=== PATIENT | male | born 1985 | race Caucasian/White ===

== ENCOUNTER 2018-05-27 07:31 | Emergency (ER) | payer MEDICAID ==
[~2018-05-27] VITALS: Ht 180.3 cm; Wt 126.0 kg
[2018-05-27 07:37] VITALS: BP 138/94
== END 2018-05-27 08:51 | disposition home or self-care (01) ==
LOC: ER 08:09
DX: H60.92 Unspecified otitis externa, left ear (principal); F17.200 Nicotine dependence, unspecified, uncomplicated
CPT/HCPCS: 99282

== ENCOUNTER 2018-12-28 18:03 | Emergency (ER) | payer MEDICAID ==
[~2018-12-28] VITALS: Ht 180.3 cm; Wt 125.0 kg
[2018-12-28] MEDS ORDERED: HALOPERIDOL LACTATE 5MG/ML VIAL IM STA (18:40)
[2018-12-28] MEDS ORDERED: LORAZEPAM 2MG/ML CPJ IM STA (18:40)
[2018-12-28 19:06] LABS: BASOPHILS % 1.1 % (0.0-2.0); EOSINOPHILS % 0.6 % (0.0-5.0); HEMATOCRIT. 42.5 % (42.0-52.0); HEMOGLOBIN. 14.7 g/dL (14.0-18.0); LYMPHOCYTES % 18.8 % (20.0-50.0); MEAN CORPUSCULAR HEMOGLOBIN 31.8 pg (28.0-32.0); MEAN CORPUSCULAR VOLUME 91.7 fL (80.0-94.0); MEAN PLATELET VOLUME 7.4 fl (7.4-10.4); MONOCYTES % 6.1 % (2.0-8.0); NEUTROPHILS % 73.4 % (40.0-76.0); PLATELET 289 x1000/uL (130-400); RED BLOOD CELL COUNT 4.63 mill/uL (4.7-6.1); RED CELL DISTRIBUTION WIDTH 12.8 % (11.6-14.6)
[2018-12-28 19:08] LABS: CHLORIDE 108 mEq/L (98-107)
[2018-12-28 19:12] LABS: ETHANOL BLOOD < 10 mg/dL
[2018-12-28] MEDS ORDERED: CALCIUM GLUCONATE 1,000 MG in DEXTROSE 5% WATER 50 ML IV ONE (19:30)
[2018-12-29 10:18] LABS: COLOR URINE YELLOW (YELLOW); KETONES URINE NEGATIVE (NEGATIVE); LEUKOCYTE ESTERASE URINE NEGATIVE (NEGATIVE); NITRITE URINE NEGATIVE (NEGATIVE); OCCULT BLOOD URINE NEGATIVE (NEGATIVE); PH URINE 6.5 (4.5-8.0); PROTEIN URINE NEGATIVE (NEGATIVE); SPECIFIC GRAVITY URINE 1.028 (1.005-1.030)
[2018-12-29 10:24] LABS: CLARITY URINE CLEAR (CLEAR)
[2018-12-29 10:48] LABS: *BENZODIAZEPINES SCREEN URINE NEGATIVE (NEGATIVE)
[2018-12-29 10:49] LABS: *AMPHETAMINES SCREEN URINE PRESUMTIVE POSITIVE (NEGATIVE); *COCAINE SCREEN URINE NEGATIVE (NEGATIVE); CANNABINOID URINE SCREEN PRESUMTIVE POSITIVE (NEGATIVE); OPIATES URINE SCREEN NEGATIVE (NEGATIVE)
[2018-12-29 10:50] LABS: *BARBITURATES SCREEN URINE NEGATIVE (NEGATIVE)
[2018-12-29 10:52] LABS: PHENCYCLIDINE URINE SCREEN NEGATIVE (NEGATIVE)
[2018-12-29 10:54] LABS: METHADONE URINE SCREEN NEGATIVE (NEGATIVE)
[2018-12-29 12:26] VITALS: BP 125/69
== END 2018-12-29 13:21 | disposition home or self-care (01) ==
LOC: ER 18:03
DX: F14.188 Cocaine abuse with other cocaine-induced disorder (principal); F15.188 Other stimulant abuse with other stimulant-induced disorder; F31.9 Bipolar disorder, unspecified; F20.9 Schizophrenia, unspecified
CPT/HCPCS: 36415; 71045; 80053; 80305; 80307; 80320; 80329; 81003; 82310; 82330; 85025; 93005; 96365; 96372; 99284; J0610; J1630; J7060; G0480

== ENCOUNTER 2019-01-02 10:13 | Emergency (ER) | payer MEDICAID ==
[~2019-01-02] VITALS: Ht 180.3 cm; Wt 100.0 kg
[2019-01-02] MEDS ORDERED: LORAZEPAM 2MG/ML CPJ IM STA (10:45)
[2019-01-02 11:22] LABS: CHLORIDE 110 mEq/L (98-107)
[2019-01-02 11:24] LABS: EOSINOPHILS % 2.1 % (0.0-5.0); HEMATOCRIT. 41.3 % (42.0-52.0); HEMOGLOBIN. 14.4 g/dL (14.0-18.0); LYMPHOCYTES % 12.7 % (20.0-50.0); MEAN CORPUSCULAR HEMOGLOBIN 31.9 pg (28.0-32.0); MEAN CORPUSCULAR VOLUME 91.6 fL (80.0-94.0); MEAN PLATELET VOLUME 7.6 fl (7.4-10.4); MONOCYTES % 7.7 % (2.0-8.0); NEUTROPHILS % 76.5 % (40.0-76.0); PLATELET 317 x1000/uL (130-400); RED CELL DISTRIBUTION WIDTH 13.2 % (11.6-14.6)
[2019-01-02 11:27] LABS: ETHANOL BLOOD < 10 mg/dL
[2019-01-02] MEDS ORDERED: CEPHALEXIN 250MG CAPSULE PO ONE (12:00)
[2019-01-02] MEDS: CEPHALEXIN 250MG CAPSULE PO SCH ×4 (12:00→21:00)
[2019-01-02] MEDS ORDERED: POTASSIUM CHLORIDE 20MEQ TABLET SR PO ONE (12:00)
[2019-01-03 08:46] LABS: CLARITY URINE CLOUDY (CLEAR); COLOR URINE YELLOW (YELLOW); KETONES URINE NEGATIVE (NEGATIVE); LEUKOCYTE ESTERASE URINE NEGATIVE (NEGATIVE); NITRITE URINE NEGATIVE (NEGATIVE); OCCULT BLOOD URINE NEGATIVE (NEGATIVE); PROTEIN URINE NEGATIVE (NEGATIVE); SPECIFIC GRAVITY URINE 1.023 (1.005-1.030)
[2019-01-03 09:08] LABS: *AMPHETAMINES SCREEN URINE NEGATIVE (NEGATIVE); *BARBITURATES SCREEN URINE NEGATIVE (NEGATIVE); *BENZODIAZEPINES SCREEN URINE NEGATIVE (NEGATIVE)
[2019-01-03 09:09] LABS: *COCAINE SCREEN URINE NEGATIVE (NEGATIVE); OPIATES URINE SCREEN NEGATIVE (NEGATIVE); PHENCYCLIDINE URINE SCREEN NEGATIVE (NEGATIVE)
[2019-01-03 09:10] LABS: CANNABINOID URINE SCREEN PRESUMTIVE POSITIVE (NEGATIVE); METHADONE URINE SCREEN NEGATIVE (NEGATIVE)
[2019-01-03] MEDS: CEPHALEXIN 250MG CAPSULE PO SCH (09:17)
[2019-01-03 12:18] VITALS: BP 118/74
== END 2019-01-03 12:26 | disposition home or self-care (01) ==
LOC: ER 10:13
DX: F23 Brief psychotic disorder (principal); L97.329 Non-pressure chronic ulcer of left ankle with unspecified severity; F15.10 Other stimulant abuse, uncomplicated
CPT/HCPCS: 36415; 73600; 80053; 80305; 80307; 80320; 80329; 81003; 85025; 96372; 99284; J2060; G0480

== ENCOUNTER 2021-02-25 19:12 | Emergency (ER) | payer MEDICAID ==
[~2021-02-25] VITALS: Ht 175.3 cm; Wt 122.0 kg
[2021-02-25] MEDS ORDERED: HYDROCODONE/ACETAMINOPHEN 5/325MG TABLET PO ONE (22:30)
[2021-02-25 23:14] LABS: CHLORIDE 103 mEq/L (98-107)
[2021-02-25 23:40] LABS: BASOPHILS % 0.8 % (0.0-2.0); EOSINOPHILS % 1.5 % (0.0-5.0); HEMATOCRIT. 44.4 % (42.0-52.0); HEMOGLOBIN. 15.5 g/dL (14.0-18.0); LYMPHOCYTES % 15.9 % (20.0-50.0); MEAN CORPUSCULAR HEMOGLOBIN 30.9 pg (28.0-32.0); MEAN CORPUSCULAR VOLUME 88.3 fL (80.0-94.0); MEAN PLATELET VOLUME 7.8 fl (7.4-10.4); MONOCYTES % 9.2 % (2.0-8.0); NEUTROPHILS % 72.6 % (40.0-76.0); PLATELET 236 x1000/uL (130-400); RED BLOOD CELL COUNT 5.02 mill/uL (4.7-6.1); RED CELL DISTRIBUTION WIDTH 13.3 % (11.6-14.6)
[2021-02-26] MEDS ORDERED: KETOROLAC 60MG/2ML VIAL IM ONE (01:00)
[2021-02-26 01:53] VITALS: BP 128/95
[2021-02-26] MEDS ORDERED: AMOX-424 MT (02:08)
[2021-02-26] MEDS ORDERED: OFLO5DRO4 LEFT EAR (02:08)
[2021-02-26] MEDS ORDERED: IOHEXOL-300 100 ML BOTTLE ONE (04:05)
== END 2021-02-26 02:20 | disposition home or self-care (01) ==
LOC: ER 19:12
DX: H60.92 Unspecified otitis externa, left ear (principal); F15.10 Other stimulant abuse, uncomplicated; E11.9 Type 2 diabetes mellitus without complications
CPT/HCPCS: 36415; 70487; 80048; 85025; 96372; 99285; J1885; Q9967; Z7610

== ENCOUNTER 2021-11-11 18:41 | Emergency (ER) | payer MEDICAID ==
[~2021-11-11] VITALS: Ht 182.9 cm; Wt 109.0 kg
[~2021-11-11 18:41] MED LIST: AMOX-424 MT; OFLO5DRO4 LEFT EAR
[2021-11-11 18:50] VITALS: BP 133/77
[2021-11-11] MEDS ORDERED: SODIUM CHLORIDE 0.9% 1,000 ML IV ONE (20:30)
[2021-11-11 21:09] LABS: BASOPHILS % 0.9 % (0.0-2.0); EOSINOPHILS % 1.2 % (0.0-5.0); HEMATOCRIT. 42.6 % (42.0-52.0); HEMOGLOBIN. 14.7 g/dL (14.0-18.0); LYMPHOCYTES % 16.5 % (20.0-50.0); MEAN CORPUSCULAR HEMOGLOBIN 31.3 pg (28.0-32.0); MEAN CORPUSCULAR VOLUME 90.9 fL (80.0-94.0); MONOCYTES % 5.9 % (2.0-8.0); NEUTROPHILS % 75.5 % (40.0-76.0); PLATELET 294 x1000/uL (130-400); RED BLOOD CELL COUNT 4.69 mill/uL (4.7-6.1); RED CELL DISTRIBUTION WIDTH 13.5 % (11.6-14.6)
[2021-11-11 21:18] LABS: CHLORIDE 108 mEq/L (98-107)
[2021-11-11 21:28] LABS: ETHANOL BLOOD 11 mg/dL
== END 2021-11-11 23:52 | disposition home or self-care (01) ==
LOC: ER 18:41
DX: F15.129 Other stimulant abuse with intoxication, unspecified (principal); F10.129 Alcohol abuse with intoxication, unspecified; T14.8XXA Other injury of unspecified body region, initial encounter; Y35.833A Legal intervention involving a conducted energy device, suspect injured, initial encounter; Y93.89 Activity, other specified; Y90.0 Blood alcohol level of less than 20 mg/100 ml; I10 Essential (primary) hypertension; E11.9 Type 2 diabetes mellitus without complications; D72.829 Elevated white blood cell count, unspecified; Y92.89 Other specified places as the place of occurrence of the external cause
CPT/HCPCS: 36415; 80053; 80307; 80320; 80329; 85025; 96360; 99283; J7030; G0480

== ENCOUNTER 2022-09-14 16:59 | Emergency (ER) | payer MEDICAID ==
[~2022-09-14] VITALS: Ht 175.3 cm; Wt 91.0 kg
[2022-09-14 18:23] LABS: BASOPHILS % 0.6 % (0.0-2.0); HEMATOCRIT. 46.1 % (42.0-52.0); HEMOGLOBIN. 16.2 g/dL (14.0-18.0); LYMPHOCYTES % 15.7 % (20.0-50.0); MEAN CORPUSCULAR HEMOGLOBIN 32.4 pg (28.0-32.0); MEAN CORPUSCULAR VOLUME 92.1 fL (80.0-94.0); MEAN PLATELET VOLUME 7.7 fl (7.4-10.4); MONOCYTES % 6.4 % (2.0-8.0); NEUTROPHILS % 76.3 % (40.0-76.0); PLATELET 341 x1000/uL (130-400); RED CELL DISTRIBUTION WIDTH 13.1 % (11.6-14.6)
[2022-09-14 18:31] LABS: CHLORIDE 105 mEq/L (98-107)
[2022-09-14 18:39] LABS: ETHANOL BLOOD < 10 mg/dL
[2022-09-14 18:52] LABS: *AMPHETAMINES SCREEN URINE PRESUMTIVE POSITIVE (NEGATIVE); *BARBITURATES SCREEN URINE NEGATIVE (NEGATIVE); *BENZODIAZEPINES SCREEN URINE NEGATIVE (NEGATIVE); *COCAINE SCREEN URINE NEGATIVE (NEGATIVE); CANNABINOID URINE SCREEN PRESUMTIVE POSITIVE (NEGATIVE); METHADONE URINE SCREEN NEGATIVE (NEGATIVE); OPIATES URINE SCREEN NEGATIVE (NEGATIVE); PHENCYCLIDINE URINE SCREEN NEGATIVE (NEGATIVE)
[2022-09-14 19:10] LABS: CLARITY URINE CLEAR (CLEAR); COLOR URINE YELLOW (YELLOW); KETONES URINE NEGATIVE (NEGATIVE); LEUKOCYTE ESTERASE URINE NEGATIVE (NEGATIVE); NITRITE URINE NEGATIVE (NEGATIVE); OCCULT BLOOD URINE NEGATIVE (NEGATIVE); PROTEIN URINE NEGATIVE (NEGATIVE); SPECIFIC GRAVITY URINE 1.029 (1.005-1.030)
[2022-09-15] MEDS: RISPERIDONE 1MG TABLET PO SCH (18:20)
[2022-09-16] MEDS ORDERED: CEFAZOLIN 1000MG PREMIX 50 ML IV ONE ×2 (06:30)
[2022-09-16] MEDS: RISPERIDONE 1MG TABLET PO SCH (09:39)
[2022-09-16 11:04] VITALS: BP 127/96
== END 2022-09-16 12:46 | disposition short-term general hospital (02) ==
LOC: ER 16:59
DX: R45.851 Suicidal ideations (principal); F15.10 Other stimulant abuse, uncomplicated; F12.10 Cannabis abuse, uncomplicated; E11.9 Type 2 diabetes mellitus without complications; Z20.822 Contact with and (suspected) exposure to COVID-19; Z86.59 Personal history of other mental and behavioral disorders
CPT/HCPCS: 36415; 80053; 80305; 80307; 80320; 80329; 81003; 85025; 87426; 99285; C9803; J0690; G0480